=== PATIENT | female | born 1955 | race Caucasian/White ===

== ENCOUNTER → 2017-03-23 | Outpatient (REF) | payer MEDICARE ==
[~2017-03-23] MED LIST: ALDA25TA PO; CRANPOW2 PO; ESTR3TA PO; FOLI400T PO; LAMI1TAB7 PO; LAMI50TA2 PO; LEVO100T5 PO; MAGN64TASA PO; OMEG12002 PO; POTA10CA PO; PRAV80TA PO; VITA100037 PO; VITA500T53 PO; ZOLO25TA PO
== END ==
LOC: M LAB REF 12:26
PROVIDERS: ATTEND Internal Medicine
DX: R56.9 Unspecified convulsions (principal)

== ENCOUNTER → 2017-12-08 | Outpatient (REF) | payer MEDICARE | LOC: M LAB REF 17:28 | DX: R30.0 Dysuria (principal) | CPT/HCPCS: 87186 ==

== ENCOUNTER → 2017-12-25 | Outpatient (CLI) | payer MEDICARE | LOC: M WUC 13:50 | DX: R05 Cough (principal) | CPT/HCPCS: 71046 ==

== ENCOUNTER → 2018-03-30 | Outpatient (REF) | payer MEDICARE ==
[2018-04-01 08:11] LABS: LAMOTRIGINE (LAMICTAL) 2.1 ug/mL (2.0-20.0)
== END ==
LOC: M LAB REF 12:11
DX: R56.9 Unspecified convulsions (principal)
CPT/HCPCS: 80175

== ENCOUNTER → 2018-10-05 | Outpatient (REF) | payer MEDICARE ==
[2018-10-07 14:50] LABS: LAMOTRIGINE (LAMICTAL) 2.6 ug/mL (2.0-20.0)
== END ==
LOC: M LAB REF 13:00
DX: R56.9 Unspecified convulsions (principal)
CPT/HCPCS: 80175

== ENCOUNTER → 2019-01-15 | Outpatient (CLI) | payer MEDICARE ==
[~2019-01-15] MED LIST changes: -ALDA25TA PO; +KLOR10TA76 PO; -POTA10CA PO; +SPIR1TAB34 PO; -VITA100037 PO; +VITA100067 PO
[2019-01-15 11:22] LABS: BASO # 0.1 10^3/uL (0.0-0.2); BASO % 0.6 % (0.0-1.0); EOS # 0.1 10^3/uL (0.0-0.50); EOS % 0.8 % (0.0-3.0); HEMATOCRIT 41.4 % (36.0-47.0); HEMOGLOBIN 14.3 g/dl (12.0-15.5); LYMPH # 0.8 10^3/uL (1.5-4.5); MEAN CORPUSCULAR HGB CONC 34.5 g/dl (32.0-36.5); MEAN CORPUSCULAR VOLUME 89.8 fl (80.0-96.0); MONO # 0.5 10^3/uL (0.0-0.8); MONO % 5.7 % (0.0-5.0); NEUTROPHILS # 7.3 10^3/uL (1.8-7.7); NEUTROPHILS % 83.4 % (36.0-66.0); PLATELET COUNT, AUTOMATED 334 10^3/uL (150-450); RED BLOOD COUNT 4.61 10^6/uL (4.00-5.40); WHITE BLOOD COUNT 8.8 10^3/uL (4.0-10.0)
[2019-01-15 12:01] LABS: ALBUMIN 3.7 GM/DL (3.2-5.2); ALT/SGPT 23 U/L (12-78); BILIRUBIN,TOTAL 0.6 MG/DL (0.2-1.0); BLOOD UREA NITROGEN 13 MG/DL (7-18); CALCIUM LEVEL 8.6 MG/DL (8.8-10.2); CARBON DIOXIDE LEVEL 31 MEQ/L (21-32); CHLORIDE LEVEL 97 MEQ/L (98-107); CREATININE FOR GFR 0.97 MG/DL (0.55-1.30); GLOMERULAR FILTRATION RATE > 60.0 (>45); GLUCOSE, FASTING 144 MG/DL (70-100); POTASSIUM SERUM 3.6 MEQ/L (3.5-5.1); SODIUM LEVEL 136 MEQ/L (136-145); TOTAL PROTEIN 7.1 GM/DL (6.4-8.2)
== END ==
LOC: M WUC 09:42
PROVIDERS: ATTEND Physician Assistant
DX: J11.89 Influenza due to unidentified influenza virus with other manifestations (principal); I95.1 Orthostatic hypotension

== ENCOUNTER → 2019-07-11 | Outpatient (REF) | payer MEDICARE ==
[~2019-07-11] MED LIST changes: +VITA500T17 PO; -VITA500T53 PO
== END ==
LOC: M LAB REF 12:43
PROVIDERS: ATTEND Internal Medicine
DX: R56.9 Unspecified convulsions (principal)

== ENCOUNTER → 2019-12-23 | Outpatient (REF) | payer MEDICARE | LOC: M LAB REF 12:02 | PROVIDERS: ATTEND Internal Medicine | DX: R56.9 Unspecified convulsions (principal) ==

== ENCOUNTER → 2020-07-14 | Outpatient (REF) | payer MEDICARE | LOC: M LAB REF 11:46 | PROVIDERS: ATTEND Physician Assistant | DX: J02.9 Acute pharyngitis, unspecified (principal) ==

== ENCOUNTER → 2020-08-17 | Outpatient (CLI) | payer SELFPAY | LOC: M LABSMTC 13:31 | PROVIDERS: ATTEND Pediatrics | DX: Z20.828 Contact with and (suspected) exposure to other viral communicable diseases (principal) ==

== ENCOUNTER → 2020-09-07 | Outpatient (CLI) | payer SELFPAY | LOC: M LABSMTC 12:53 | PROVIDERS: ATTEND Pediatrics | DX: Z20.828 Contact with and (suspected) exposure to other viral communicable diseases (principal) ==

== ENCOUNTER → 2020-09-14 | Outpatient (CLI) | payer SELFPAY | LOC: M LABSMTC 10:02 | PROVIDERS: ATTEND Pediatrics | DX: Z20.828 Contact with and (suspected) exposure to other viral communicable diseases (principal) ==

== ENCOUNTER → 2020-09-21 | Outpatient (CLI) | payer SELFPAY | LOC: M LABSMTC 12:19 | PROVIDERS: ATTEND Pediatrics | DX: Z20.828 Contact with and (suspected) exposure to other viral communicable diseases (principal) ==

== ENCOUNTER → 2020-09-28 | Outpatient (CLI) | payer SELFPAY | LOC: M LABSMTC 13:29 | PROVIDERS: ATTEND Pediatrics | DX: Z20.828 Contact with and (suspected) exposure to other viral communicable diseases (principal) ==

== ENCOUNTER → 2020-10-12 | Outpatient (CLI) | payer SELFPAY | LOC: M LABSMTC 11:27 | PROVIDERS: ATTEND Pediatrics | DX: Z20.828 Contact with and (suspected) exposure to other viral communicable diseases (principal) ==

== ENCOUNTER → 2020-10-19 | Outpatient (CLI) | payer SELFPAY | LOC: M LABSMTC 12:21 | PROVIDERS: ATTEND Pediatrics | DX: Z20.828 Contact with and (suspected) exposure to other viral communicable diseases (principal) ==

== ENCOUNTER → 2020-10-29 | Outpatient (CLI) | payer SELFPAY | LOC: M LABSMTC 11:45 | PROVIDERS: ATTEND Pediatrics | DX: Z20.828 Contact with and (suspected) exposure to other viral communicable diseases (principal) ==

== ENCOUNTER → 2020-11-09 | Outpatient (CLI) | payer SELFPAY | LOC: M LABSMTC 09:37 | PROVIDERS: ATTEND Pediatrics | DX: Z20.828 Contact with and (suspected) exposure to other viral communicable diseases (principal) ==

== ENCOUNTER → 2020-11-16 | Outpatient (CLI) | payer SELFPAY | LOC: M LABSMTC 09:33 | PROVIDERS: ATTEND Pediatrics | DX: Z20.828 Contact with and (suspected) exposure to other viral communicable diseases (principal) ==

== ENCOUNTER → 2020-12-07 | Outpatient (CLI) | payer SELFPAY | LOC: M LABSMTC 09:54 | PROVIDERS: ATTEND Pediatrics | DX: Z20.822 Contact with and (suspected) exposure to COVID-19 (principal) ==

== ENCOUNTER → 2020-12-14 | Outpatient (CLI) | payer SELFPAY | LOC: M LABSMTC 09:48 | PROVIDERS: ATTEND Pediatrics | DX: Z20.822 Contact with and (suspected) exposure to COVID-19 (principal) ==

== ENCOUNTER → 2020-12-21 | Outpatient (CLI) | payer SELFPAY | LOC: M LABSMTC 09:45 | PROVIDERS: ATTEND Pediatrics | DX: Z20.822 Contact with and (suspected) exposure to COVID-19 (principal) ==

== ENCOUNTER → 2020-12-28 | Outpatient (CLI) | payer SELFPAY | LOC: M LABSMTC 09:52 | PROVIDERS: ATTEND Pediatrics | DX: Z20.822 Contact with and (suspected) exposure to COVID-19 (principal) ==

== ENCOUNTER → 2021-01-04 | Outpatient (CLI) | payer SELFPAY | LOC: M LABSMTC 09:35 | PROVIDERS: ATTEND Pediatrics | DX: Z20.822 Contact with and (suspected) exposure to COVID-19 (principal) ==

== ENCOUNTER → 2021-01-11 | Outpatient (CLI) | payer SELFPAY | LOC: M LABSMTC 10:44 | PROVIDERS: ATTEND Pediatrics | DX: Z20.822 Contact with and (suspected) exposure to COVID-19 (principal) ==

== ENCOUNTER → 2021-01-11 | Outpatient (REF) | payer MEDICARE | LOC: M LAB REF 12:02 | PROVIDERS: ATTEND Internal Medicine | DX: R56.9 Unspecified convulsions (principal) ==

== ENCOUNTER → 2021-01-25 | Outpatient (CLI) | payer SELFPAY | LOC: M LABSMTC 09:32 | PROVIDERS: ATTEND Pediatrics | DX: Z11.52 Encounter for screening for COVID-19 (principal) ==

== ENCOUNTER → 2021-02-01 | Outpatient (CLI) | payer SELFPAY ==
[~2021-02-01] MED LIST changes: -FOLI400T PO; +FOLI400T13 PO
== END ==
LOC: M LABSMTC 09:40
PROVIDERS: ATTEND Pediatrics
DX: Z11.52 Encounter for screening for COVID-19 (principal)

== ENCOUNTER → 2021-02-17 | Outpatient (REF) | payer MEDICARE | LOC: M WUC 19:24 | PROVIDERS: ATTEND Physician Assistant | DX: N30.01 Acute cystitis with hematuria (principal) ==

== ENCOUNTER → 2021-07-19 | Outpatient (REF) | payer MEDICARE | LOC: M LAB REF 11:51 | PROVIDERS: ATTEND Internal Medicine | DX: R56.9 Unspecified convulsions (principal) ==

== ENCOUNTER → 2021-08-06 | Outpatient (CLI) | payer MEDICARE ==
[~2021-08-06] MED LIST changes: -KLOR10TA76 PO; +POTA-136 PO
== END ==
LOC: M WHC 10:43
PROVIDERS: ATTEND Internal Medicine
DX: M85.80 Other specified disorders of bone density and structure, unspecified site (principal); Z53.9 Procedure and treatment not carried out, unspecified reason

== ENCOUNTER → 2021-08-15 | Outpatient (REF) | payer MEDICARE | LOC: M WUC 09:51 | PROVIDERS: ATTEND Physician Assistant | DX: L03.011 Cellulitis of right finger (principal) ==

== ENCOUNTER → 2022-01-03 | Outpatient (CLI) | payer MEDICARE | LOC: M WHC 08:04 | PROVIDERS: ATTEND Internal Medicine | DX: M85.88 Other specified disorders of bone density and structure, other site (principal) ==

== ENCOUNTER → 2022-01-24 | Outpatient (REF) | payer MEDICARE | LOC: M LAB REF 11:52 | PROVIDERS: ATTEND Internal Medicine | DX: R56.9 Unspecified convulsions (principal) ==

== ENCOUNTER → 2022-02-22 | Outpatient (CLI) | payer MEDICARE ==
[~2022-02-22] MED LIST changes: +COLA100C5 PO; +ESTR625TA PO; +PRAV80TA2 PO; +SPIR50TA4 PO; +TRAZ-252 PO; +VITA100093 PO
== END ==
LOC: M LABSMTC 11:05
PROVIDERS: ATTEND Anesthesiology
DX: Z01.812 Encounter for preprocedural laboratory examination (principal); Z20.822 Contact with and (suspected) exposure to COVID-19

== ENCOUNTER 2022-02-27 08:00 | Day surgery (SDC) | payer MEDICARE ==
[~2022-02-27] VITALS: Ht 160 cm; Wt 74.8 kg
[~2022-02-27 08:00] MED LIST changes: +NS 1,000 ML IV ONE
[2022-02-27] MEDS ORDERED: LIDOCAINE 2% 100MG/5ML SDV (FOR ANES.) As Ordered ONE (08:31)
[2022-02-27] MEDS ORDERED: propofoL 200 MG/20 ML VIAL As Ordered ONE (08:31)
[2022-02-27 10:50] VITALS: BP 125/70
== END 2022-02-27 11:00 | disposition home or self-care (01) ==
LOC: M OPP 08:00
PROVIDERS: ATTEND Internal Medicine Gastroenterology
DX: Z12.11 Encounter for screening for malignant neoplasm of colon (principal); K57.30 Diverticulosis of large intestine without perforation or abscess without bleeding; K64.8 Other hemorrhoids; Z79.899 Other long term (current) drug therapy; Z88.0 Allergy status to penicillin; Z88.7 Allergy status to serum and vaccine; Z88.8 Allergy status to other drugs, medicaments and biological substances; Z91.018 Allergy to other foods; Z91.048 Other nonmedicinal substance allergy status

== ENCOUNTER → 2023-01-23 | Outpatient (REF) | payer MEDICARE ==
[~2023-01-23] MED LIST changes: -NS 1,000 ML IV ONE
== END ==
LOC: M LAB REF 11:26
PROVIDERS: ATTEND Internal Medicine
DX: R56.9 Unspecified convulsions (principal)

== ENCOUNTER → 2023-03-20 | Outpatient (CLI) | payer MEDICARE | LOC: M WHC 07:20 | PROVIDERS: ATTEND Internal Medicine | DX: Z12.31 Encounter for screening mammogram for malignant neoplasm of breast (principal); R92.2 Inconclusive mammogram ==

== ENCOUNTER → 2023-03-25 | Outpatient (CLI) | payer MEDICARE | LOC: M WHC 07:45 | PROVIDERS: ATTEND Internal Medicine | DX: R92.8 Other abnormal and inconclusive findings on diagnostic imaging of breast (principal); Z13.9 Encounter for screening, unspecified | CPT/HCPCS: 77065; G0279 ==

== ENCOUNTER → 2023-07-10 | Outpatient (CLI) | payer MEDICARE ==
[2023-07-10 14:10] LABS: BASO # 0.1 10^3/uL (0.0-0.2); BASO % 0.8 % (0.0-1.0); EOS # 0.3 10^3/uL (0.0-0.5); EOS % 4.6 % (0.0-3.0); HEMATOCRIT 41.7 % (36.0-47.0); HEMOGLOBIN 14.1 g/dl (12.0-15.5); LYMPH # 2.8 10^3/uL (1.5-5.0); LYMPH % 37.6 % (24.0-44.0); MEAN CORPUSCULAR HEMOGLOBIN 30.4 pg (27.0-33.0); MEAN CORPUSCULAR HGB CONC 33.8 g/dl (32.0-36.5); MEAN CORPUSCULAR VOLUME 89.9 fl (80.0-96.0); MONO # 0.7 10^3/uL (0.0-0.8); MONO % 8.9 % (2.0-8.0); NEUTROPHILS # 3.5 10^3/uL (1.5-8.5); PLATELET COUNT, AUTOMATED 336 10^3/uL (150-450); RED BLOOD COUNT 4.64 10^6/uL (4.00-5.40); WHITE BLOOD COUNT 7.3 10^3/uL (4.0-10.0)
[2023-07-10 14:12] LABS: C REACTIVE PROTEIN QUANTITATIV < 0.40 MG/DL (<1.0)
[2023-07-10 14:14] LABS: ALBUMIN 3.9 G/DL (3.2-5.2); ALKALINE PHOSPHATASE 106 U/L (46-116); ALT/SGPT 13 U/L (7.0-40); AST/SGOT 14 U/L (<34); BILIRUBIN,TOTAL 0.5 MG/DL (0.3-1.2); BLOOD UREA NITROGEN 12 MG/DL (9-23); CALCIUM LEVEL 9.3 MG/DL (8.3-10.6); CARBON DIOXIDE LEVEL 36 MMOL/L (20-31); CHLORIDE LEVEL 94 MMOL/L (98-107); CREATININE FOR GFR 0.86 MG/DL (0.55-1.30); GLOMERULAR FILTRATION RATE > 60.0 (>45); GLUCOSE, FASTING 108 MG/DL (74-106); POTASSIUM SERUM 3.6 MMOL/L (3.5-5.1); RHEUMATOID FACTOR QUANT 7.2 IU/ML (<14); SODIUM LEVEL 136 MMOL/L (136-145); TOTAL PROTEIN 7.2 G/DL (5.7-8.2)
[2023-07-10 14:16] LABS: URIC ACID 6.4 MG/DL (3.1-7.8)
[2023-07-10 14:29] LABS: ERYTHROCYTE SEDIMENTATION RATE 22 mm/hr (0-30)
== END ==
LOC: M PLALAB 09:40
PROVIDERS: ATTEND Orthopaedic Surgery
DX: M25.562 Pain in left knee (principal)

== ENCOUNTER → 2023-07-30 | Outpatient (REF) | payer MEDICARE | LOC: M LAB REF 12:20 | PROVIDERS: ATTEND Internal Medicine | DX: R56.9 Unspecified convulsions (principal) ==

== ENCOUNTER → 2024-04-01 | Outpatient (CLI) | payer MEDICARE | LOC: M WHC 07:56 | PROVIDERS: ATTEND Internal Medicine | DX: Z12.31 Encounter for screening mammogram for malignant neoplasm of breast (principal) ==

== ENCOUNTER → 2024-08-17 | Outpatient (CLI) | payer MEDICARE | LOC: M WHC 07:21 | PROVIDERS: ATTEND Internal Medicine | DX: M85.89 Other specified disorders of bone density and structure, multiple sites (principal) ==

== ENCOUNTER → 2024-10-21 | Outpatient (REF) | payer MEDICARE | LOC: M LAB REF 12:36 | PROVIDERS: ATTEND Nurse Practitioner Family | DX: R30.0 Dysuria (principal) ==

== ENCOUNTER → 2025-02-09 | Outpatient (REF) | payer MEDICARE | LOC: M LAB REF 12:19 | PROVIDERS: ATTEND Internal Medicine | DX: R56.9 Unspecified convulsions (principal) ==

== ENCOUNTER → 2025-04-03 | Outpatient (CLI) | payer MEDICARE | LOC: M WHC 07:53 | PROVIDERS: ATTEND Internal Medicine | DX: Z12.31 Encounter for screening mammogram for malignant neoplasm of breast (principal); R92.343 Mammographic extreme density, bilateral breasts; N63.23 Unspecified lump in the left breast, lower outer quadrant ==

== ENCOUNTER → 2025-04-10 | Outpatient (CLI) | payer MEDICARE | LOC: M WHC 12:56 | PROVIDERS: ATTEND Internal Medicine | DX: R92.8 Other abnormal and inconclusive findings on diagnostic imaging of breast (principal); R92.343 Mammographic extreme density, bilateral breasts; N60.02 Solitary cyst of left breast | CPT/HCPCS: 76642; 77065; G0279 ==

== ENCOUNTER → 2025-08-31 | Outpatient (REF) | payer MEDICARE ==
[~2025-08-31] MED LIST changes: -PRAV80TA2 PO; +PRAV80TA75 PO; -VITA500T17 PO; +VITA500T8 PO
== END ==
LOC: M LAB REF 12:10
PROVIDERS: ATTEND Internal Medicine
DX: R56.9 Unspecified convulsions (principal)

== ENCOUNTER → 2025-09-20 | Outpatient (CLI) | payer MEDICARE | LOC: M RAD 09:00 | PROVIDERS: ATTEND Internal Medicine | DX: Z13.6 Encounter for screening for cardiovascular disorders (principal); Z82.49 Family history of ischemic heart disease and other diseases of the circulatory system ==

== ENCOUNTER → 2025-09-22 | Outpatient (CLI) | payer MEDICARE | LOC: M RAD 07:30 | PROVIDERS: ATTEND Internal Medicine | DX: R94.5 Abnormal results of liver function studies (principal) ==

== ENCOUNTER → 2025-10-02 | Outpatient (REF) | payer MEDICARE | LOC: M LAB REF 12:26 | PROVIDERS: ATTEND Student in an Organized Health Care Education/Training Program | DX: R30.0 Dysuria (principal) ==